=== PATIENT | female | born 1955 | race Two or more races ===

== ENCOUNTER 2021-12-21 15:47 | Emergency (ER) | payer MEDICAID, OTHER ==
[~2021-12-21] VITALS: Ht 160 cm; Wt 89.4 kg
[2021-12-21 15:52] VITALS: BP 130/107
== END 2021-12-21 20:53 | disposition left against medical advice (07) ==
LOC: ER 15:47
DX: M54.9 Dorsalgia, unspecified (principal); Z53.21 Procedure and treatment not carried out due to patient leaving prior to being seen by health care provider